=== PATIENT | female | born 1990 | race African-American/Black ===

== ENCOUNTER 2016-10-14 14:33 | Emergency (ER) | payer OTHER ==
[~2016-10-14] VITALS: Ht 167.6 cm; Wt 136.0 kg
[2016-10-14 14:43] VITALS: BP 166/93
[2016-10-14] MEDS ORDERED: birth control (14:46)
== END 2016-10-14 16:25 | disposition home or self-care (01) ==
LOC: ER 16:04
DX: R21 Rash and other nonspecific skin eruption (principal); Z98.890 Other specified postprocedural states
CPT/HCPCS: 99283

== ENCOUNTER 2019-09-28 18:53 | Emergency (ER) | payer OTHER ==
[~2019-09-28] VITALS: Ht 167.6 cm; Wt 140.0 kg
[~2019-09-28 18:53] MED LIST: birth control
[2019-09-28] MEDS ORDERED: ONDANSETRON 4MG ODT PO ONE (20:45)
[2019-09-28 21:40] LABS: HEMATOCRIT. 38.8 % (36.0-48.0); HEMOGLOBIN. 12.8 g/dL (12.0-16.0); MEAN CORPUSCULAR HEMOGLOBIN 26.2 pg (28.0-32.0); MEAN CORPUSCULAR VOLUME 79.2 fL (81.0-99.0); MEAN PLATELET VOLUME 7.9 fl (7.4-10.4); PLATELET 393 x1000/uL (130-400); RED BLOOD CELL COUNT 4.89 mill/uL (4.2-5.4); RED CELL DISTRIBUTION WIDTH 16.9 % (11.6-14.6)
[2019-09-28 21:46] LABS: CHLORIDE 107 mEq/L (98-107)
[2019-09-28 22:23] LABS: HCG SCREEN NEGATIVE
[2019-09-28 22:59] LABS: PLATELET ESTIMATE NORMAL
[2019-09-28 23:28] VITALS: BP 115/69
== END 2019-09-28 23:29 | disposition home or self-care (01) ==
LOC: ER 18:53
DX: R11.10 Vomiting, unspecified (principal); R19.7 Diarrhea, unspecified; R03.0 Elevated blood-pressure reading, without diagnosis of hypertension
CPT/HCPCS: 36415; 80053; 84703; 85025; 99283; Q0162

== ENCOUNTER 2020-07-13 13:50 | Emergency (ER) | payer OTHER ==
[~2020-07-13] VITALS: Ht 167.6 cm; Wt 127.0 kg
[2020-07-13 13:53] VITALS: BP 135/84
[2020-07-13 14:57] LABS: BASOPHILS % 0.4 % (0.0-2.0); EOSINOPHILS % 1.3 % (0.0-5.0); HEMATOCRIT. 39.2 % (36.0-48.0); HEMOGLOBIN. 13.6 g/dL (12.0-16.0); LYMPHOCYTES % 28.5 % (20.0-50.0); MEAN CORPUSCULAR HEMOGLOBIN 29.6 pg (28.0-32.0); MEAN CORPUSCULAR VOLUME 85.3 fL (81.0-99.0); MEAN PLATELET VOLUME 7.7 fl (7.4-10.4); MONOCYTES % 6.1 % (2.0-8.0); NEUTROPHILS % 63.7 % (40.0-76.0); PLATELET 322 x1000/uL (130-400); RED BLOOD CELL COUNT 4.59 mill/uL (4.2-5.4); RED CELL DISTRIBUTION WIDTH 14.6 % (11.6-14.6)
[2020-07-13 15:41] LABS: CLARITY URINE CLOUDY (CLEAR); COLOR URINE YELLOW (YELLOW); KETONES URINE NEGATIVE (NEGATIVE); LEUKOCYTE ESTERASE URINE NEGATIVE (NEGATIVE); NITRITE URINE NEGATIVE (NEGATIVE); OCCULT BLOOD URINE 3+ (NEGATIVE); PH URINE 7.5 (4.5-8.0); PROTEIN URINE NEGATIVE (NEGATIVE); SPECIFIC GRAVITY URINE 1.019 (1.005-1.030); UROBILINOGEN URINE 0.2 E.U./dL (0.2-1.0)
== END 2020-07-13 18:37 | disposition home or self-care (01) ==
LOC: ER 13:50
DX: O20.0 Threatened abortion (principal); R82.71 Bacteriuria; Z3A.01 Less than 8 weeks gestation of pregnancy; Z98.890 Other specified postprocedural states
CPT/HCPCS: 36415; 76801; 81003; 84702; 85025; 86850; 86900; 99284

== ENCOUNTER 2020-09-19 21:21 | Emergency (ER) | payer OTHER ==
[~2020-09-19] VITALS: Ht 167.6 cm; Wt 131.1 kg
[2020-09-19] MEDS ORDERED: SODIUM CHLORIDE 0.9% 1,000 ML IV ONE (21:45)
[2020-09-19 22:25] LABS: BASOPHILS % 0.4 % (0.0-2.0); EOSINOPHILS % 1.6 % (0.0-5.0); HEMATOCRIT. 39.3 % (36.0-48.0); LYMPHOCYTES % 29.5 % (20.0-50.0); MEAN CORPUSCULAR HEMOGLOBIN 29.3 pg (28.0-32.0); MEAN CORPUSCULAR VOLUME 88.5 fL (81.0-99.0); MEAN PLATELET VOLUME 7.7 fl (7.4-10.4); MONOCYTES % 6.1 % (2.0-8.0); NEUTROPHILS % 62.4 % (40.0-76.0); PLATELET 320 x1000/uL (130-400); RED BLOOD CELL COUNT 4.44 mill/uL (4.2-5.4); RED CELL DISTRIBUTION WIDTH 14.6 % (11.6-14.6)
[2020-09-19 22:28] LABS: PROTHROMBIN TIME 10.4 sec (9.6-11.0)
[2020-09-19 22:30] LABS: CHLORIDE 106 mEq/L (98-107)
[2020-09-19 22:54] LABS: B-HCG QUANTITATIVE 12584 mIU/mL (<3)
[2020-09-20 00:12] LABS: CLARITY URINE CLEAR (CLEAR); COLOR URINE YELLOW (YELLOW); KETONES URINE 4+ (NEGATIVE); LEUKOCYTE ESTERASE URINE NEGATIVE (NEGATIVE); NITRITE URINE NEGATIVE (NEGATIVE); OCCULT BLOOD URINE 3+ (NEGATIVE); PROTEIN URINE 1+ (NEGATIVE); SPECIFIC GRAVITY URINE 1.035 (1.005-1.030)
[2020-09-20 00:51] LABS: *AMPHETAMINES SCREEN URINE NEGATIVE (NEGATIVE); *BARBITURATES SCREEN URINE NEGATIVE (NEGATIVE); *BENZODIAZEPINES SCREEN URINE NEGATIVE (NEGATIVE); *COCAINE SCREEN URINE NEGATIVE (NEGATIVE); METHADONE URINE SCREEN NEGATIVE (NEGATIVE)
[2020-09-20 00:52] LABS: CANNABINOID URINE SCREEN NEGATIVE (NEGATIVE); OPIATES URINE SCREEN NEGATIVE (NEGATIVE); PHENCYCLIDINE URINE SCREEN NEGATIVE (NEGATIVE)
[2020-09-20 02:00] VITALS: BP 133/74
== END 2020-09-20 02:12 | disposition home or self-care (01) ==
LOC: ER 21:21
DX: O46.92 Antepartum hemorrhage, unspecified, second trimester (principal); Z3A.14 14 weeks gestation of pregnancy; Z98.890 Other specified postprocedural states
CPT/HCPCS: 36415; 76830; 76856; 80053; 80305; 81003; 81025; 84702; 85025; 85610; 86850; 86900; 86901; 93005; 96360; 96361; 99285; J7030

== ENCOUNTER 2020-10-21 20:55 | Emergency (ER) | payer OTHER ==
[~2020-10-21] VITALS: Ht 167.6 cm; Wt 125.0 kg
[2020-10-21 21:22] VITALS: BP 138/67
[2020-10-21 21:46] LABS: CLARITY URINE CLOUDY (CLEAR); COLOR URINE YELLOW (YELLOW); KETONES URINE TRACE (NEGATIVE); LEUKOCYTE ESTERASE URINE 1+ (NEGATIVE); NITRITE URINE NEGATIVE (NEGATIVE); OCCULT BLOOD URINE NEGATIVE (NEGATIVE); PROTEIN URINE NEGATIVE (NEGATIVE); SPECIFIC GRAVITY URINE 1.028 (1.005-1.030); UROBILINOGEN URINE 0.2 E.U./dL (0.2-1.0)
[2020-10-21] MEDS ORDERED: CEPH500T MT (21:55)
[2020-10-21] MEDS ORDERED: CEPHALEXIN 250MG CAPSULE PO ONE (22:00)
== END 2020-10-21 22:44 | disposition home or self-care (01) ==
LOC: ER 20:55
DX: O23.12 Infections of bladder in pregnancy, second trimester (principal); O26.892 Other specified pregnancy related conditions, second trimester; R03.0 Elevated blood-pressure reading, without diagnosis of hypertension; Z3A.19 19 weeks gestation of pregnancy
CPT/HCPCS: 81003; 99283

== ENCOUNTER 2020-11-17 08:05 | Inpatient (IN) | payer OTHER ==
[~2020-11-17] VITALS: Ht 167.6 cm; Wt 131.1 kg
[~2020-11-17 08:05] MED LIST changes: +CEPH500T MT
[2020-11-17] MEDS ORDERED: TERBUTALINE SULFATE 1MG/ML VIAL SUBCUT SCH (09:15)
[2020-11-17] MEDS ORDERED: TERBUTALINE SULFATE 1MG/ML VIAL ONE (09:23)
[2020-11-17] MEDS: LACTATED RINGERS 1,000 ML IV SCH ×2 (09:46→11:44)
[2020-11-17 10:36] LABS: CLARITY URINE CLOUDY (CLEAR); COLOR URINE DARK YELLOW (YELLOW); KETONES URINE TRACE (NEGATIVE); LEUKOCYTE ESTERASE URINE 2+ (NEGATIVE); NITRITE URINE NEGATIVE (NEGATIVE); OCCULT BLOOD URINE NEGATIVE (NEGATIVE); PROTEIN URINE 1+ (NEGATIVE); SPECIFIC GRAVITY URINE 1.031 (1.005-1.030)
[2020-11-17] MEDS ORDERED: MAGNESIUM 20 G PREMIX (L & D) 500 ML IV SCH (11:00)
[2020-11-17] MEDS ORDERED: MAGNESIUM 4 G PREMIX 100 ML IV NR (11:00)
[2020-11-17 11:11] LABS: *BARBITURATES SCREEN URINE NEGATIVE (NEGATIVE); *BENZODIAZEPINES SCREEN URINE NEGATIVE (NEGATIVE); *COCAINE SCREEN URINE NEGATIVE (NEGATIVE)
[2020-11-17 11:12] LABS: *AMPHETAMINES SCREEN URINE NEGATIVE (NEGATIVE); CANNABINOID URINE SCREEN NEGATIVE (NEGATIVE); METHADONE URINE SCREEN NEGATIVE (NEGATIVE); OPIATES URINE SCREEN NEGATIVE (NEGATIVE); PHENCYCLIDINE URINE SCREEN NEGATIVE (NEGATIVE)
[2020-11-17 12:04] LABS: BASOPHILS % 0.2 % (0.0-2.0); EOSINOPHILS % 0.4 % (0.0-5.0); HEMATOCRIT. 34.3 % (36.0-48.0); HEMOGLOBIN. 11.7 g/dL (12.0-16.0); LYMPHOCYTES % 7.8 % (20.0-50.0); MEAN CORPUSCULAR HEMOGLOBIN 30.6 pg (28.0-32.0); MEAN CORPUSCULAR VOLUME 89.6 fL (81.0-99.0); MEAN PLATELET VOLUME 7.9 fl (7.4-10.4); MONOCYTES % 5.6 % (2.0-8.0); PLATELET 300 x1000/uL (130-400); RED BLOOD CELL COUNT 3.83 mill/uL (4.2-5.4); RED CELL DISTRIBUTION WIDTH 13.4 % (11.6-14.6)
[2020-11-17 12:13] LABS: PARTIAL THROMBOPLASTIN TIME 31.9 sec (23.4-31.0); PROTHROMBIN TIME 10.5 sec (9.6-11.0)
[2020-11-17] MEDS ORDERED: BETAMETHASONE ACET/BETAMET 30 MG/5 ML VIAL IM SCH (12:30)
[2020-11-17] MEDS ORDERED: INDOMETHACIN 25MG CAPSULE PO ONE (12:45)
[2020-11-17 12:48] LABS: HEPATITIS B SURFACE ANTIGEN NEGATIVE
[2020-11-17] MEDS ORDERED: CITRIC ACID/SODIUM CITRATE SOLN 30ML UDC PO NR (13:30)
[2020-11-17] MEDS ORDERED: PENICILLIN G POTASSIUM 5 MMU in DEXT 5% WATER 100 ML IV NR (13:30)
[2020-11-17] MEDS ORDERED: NIFEDIPINE 10MG CAPSULE PO PRN (15:30)
[2020-11-17] MEDS ORDERED: MORPHINE SULFATE/PF 1MG/ML 10ML AMP ONE (16:17)
[2020-11-17] MEDS ORDERED: EPHEDRINE SULFATE 50MG/ML VIAL ONE (16:17)
[2020-11-17] MEDS ORDERED: FENTANYL CITRATE/PF 50MCG/ML 2ML VIAL ONE (16:17)
[2020-11-17] MEDS ORDERED: PROPOFOL 200MG/20ML VIAL IV ONE (16:18)
[2020-11-17] MEDS ORDERED: SUCCINYLCHOLINE CHLORIDE 200MG/10ML IV ONE (16:19)
[2020-11-17] MEDS ORDERED: SODIUM CHLORIDE 0.9% 10ML VIAL ONE (16:20)
[2020-11-17] MEDS ORDERED: CEFAZOLIN SODIUM 1000MG/VIAL ONE (16:37)
[2020-11-17] MEDS ORDERED: OXYTOCIN 10 UNITS/ML 1ML ONE ×2 (16:37→17:02)
[2020-11-17] MEDS ORDERED: METOCLOPRAMIDE HCL 10MG/2ML VIAL ONE (16:42)
[2020-11-17] MEDS ORDERED: ONDANSETRON HCL 4MG/2ML INJ ONE (16:42)
[2020-11-17] MEDS ORDERED: DIPHENHYDRAMINE 50MG/ML VIAL ONE (16:50)
[2020-11-17] MEDS ORDERED: KETOROLAC 60MG/2ML VIAL IM ONE (17:00)
[2020-11-17] MEDS ORDERED: IBUPROFEN 400MG TABLET PO PRN (17:30)
[2020-11-17] MEDS ORDERED: ONDANSETRON HCL 4MG/2ML INJ IV PRN (17:30)
[2020-11-17] MEDS ORDERED: DIPHENHYDRAMINE 25MG CAPSULE PO PRN (17:30)
[2020-11-17] MEDS ORDERED: RHO(D) IMMUNE GLOBULIN 300 MCG/SYR IM PRN (17:30)
[2020-11-17] MEDS ORDERED: BISACODYL 10MG SUPP PR PRN (17:30)
[2020-11-17] MEDS ORDERED: LANOLIN OINT 7GM TUBE TOP PRN (17:30)
[2020-11-17] MEDS ORDERED: HYDROCODONE/ACETAMINOPHEN 5/325MG TABLET PO PRN (17:30)
[2020-11-17] MEDS ORDERED: HEMORRHOIDAL SUPP PR PRN (17:30)
[2020-11-17] MEDS ORDERED: PENICILLIN G POTASSIUM 2.5 MMU in DEXTROSE 5% WATER 50 ML IV SCH (20:30)
[2020-11-17 21:00] VITALS: BP 110/69
[2020-11-17] MEDS ORDERED: DOCUSATE SODIUM 100MG CAPSULE PO SCH (21:00)
[2020-11-17] MEDS: DEXT 5%/LR + PITOCIN 20UNITS/L 1,000 ML IV SCH (21:16)
[2020-11-18] VITALS: BP 111/73
[2020-11-18 04:00] VITALS: BP 100/55
[2020-11-18] MEDS: DEXT 5%/LR + PITOCIN 20UNITS/L 1,000 ML IV SCH (04:14)
[2020-11-18] MEDS: IBUPROFEN 800MG TABLET PO PRN ×3 (04:15→21:32)
[2020-11-18 06:24] LABS: HEMOGLOBIN. 11.1 g/dL (12.0-16.0); MEAN CORPUSCULAR HEMOGLOBIN 30.7 pg (28.0-32.0); MEAN CORPUSCULAR VOLUME 91.1 fL (81.0-99.0); MEAN PLATELET VOLUME 7.8 fl (7.4-10.4); PLATELET 328 x1000/uL (130-400); RED BLOOD CELL COUNT 3.62 mill/uL (4.2-5.4); RED CELL DISTRIBUTION WIDTH 13.2 % (11.6-14.6)
[2020-11-18] MEDS ORDERED: FERROUS SULFATE 325MG TABLET PO SCH (07:30)
[2020-11-18] MEDS: MAGNESIUM/ALUMINUM HYDROXIDE/SIMETHICONE 30ML UDC PO SCH ×2 (07:30→21:33)
[2020-11-18 08:00] VITALS: BP 106/59
[2020-11-18] MEDS ORDERED: BETAMETHASONE ACET/BETAMET 30 MG/5 ML VIAL IM SCH (12:30)
[2020-11-18] MEDS: PRENATAL VIT/FE FUMARATE/FA TABLET PO SCH (13:07)
[2020-11-18 15:47] VITALS: BP 114/71
[2020-11-18 18:25] LABS: PLATELET ESTIMATE NORMAL
[2020-11-18 20:00] VITALS: BP 109/57
[2020-11-19 01:11] LABS: BASOPHILS % 0.2 % (0.0-2.0); EOSINOPHILS % 0.6 % (0.0-5.0); HEMOGLOBIN. 9.5 g/dL (12.0-16.0); LYMPHOCYTES % 14.2 % (20.0-50.0); MEAN CORPUSCULAR HEMOGLOBIN 30.9 pg (28.0-32.0); MEAN CORPUSCULAR VOLUME 90.9 fL (81.0-99.0); MEAN PLATELET VOLUME 7.7 fl (7.4-10.4); MONOCYTES % 6.5 % (2.0-8.0); NEUTROPHILS % 78.5 % (40.0-76.0); PLATELET 289 x1000/uL (130-400); RED BLOOD CELL COUNT 3.08 mill/uL (4.2-5.4); RED CELL DISTRIBUTION WIDTH 13.2 % (11.6-14.6)
[2020-11-19 04:00] VITALS: BP 102/62
[2020-11-19] MEDS: IBUPROFEN 800MG TABLET PO PRN (08:14)
[2020-11-19] MEDS: PRENATAL VIT/FE FUMARATE/FA TABLET PO SCH (09:00)
== END 2020-11-19 08:20 | disposition home or self-care (01) | DRG 786 ==
LOC: 8 EST LDRP 08:05 → OBSVTOIN 08:05 → 8EST 20:53
PROVIDERS: ADMIT Obstetrics & Gynecology; ATTEND Obstetrics & Gynecology
PROC: 10D00Z1 Extraction of Products of Conception, Low, Open Approach (ICD-10-PCS; principal; 2020-11-17)
DX: O42.912 Preterm premature rupture of membranes, unspecified as to length of time between rupture and onset of labor, second trimester (principal); O60.12X0 Preterm labor second trimester with preterm delivery second trimester, not applicable or unspecified; O34.211 Maternal care for low transverse scar from previous cesarean delivery; Z20.822 Contact with and (suspected) exposure to COVID-19; O32.1XX0 Maternal care for breech presentation, not applicable or unspecified; Z37.0 Single live birth; Z3A.23 23 weeks gestation of pregnancy
CPT/HCPCS: 36415; 76805; 80305; 81003; 82731; 85025; 86592; 86644; 86703; 86762; 86850; 86900; 87340; 87426; 88307; 99281; G0378; J0330; J0690; J0702; J1200; J1885; J2274; J2405; J2540; J2590; J2704; J2765; J3010; J3105; J3475; J3490; J7060; J7120

== ENCOUNTER 2021-06-19 21:37 | Emergency (ER) | payer OTHER ==
[~2021-06-19] VITALS: Ht 167.6 cm; Wt 133.0 kg
[~2021-06-19 21:37] MED LIST changes: -birth control
[2021-06-19] MEDS ORDERED: PREN1TAB78 MT (22:13)
[2021-06-19 22:55] LABS: CLARITY URINE CLEAR (CLEAR); COLOR URINE YELLOW (YELLOW); KETONES URINE TRACE (NEGATIVE); LEUKOCYTE ESTERASE URINE 2+ (NEGATIVE); NITRITE URINE NEGATIVE (NEGATIVE); OCCULT BLOOD URINE TRACE (NEGATIVE); PROTEIN URINE TRACE (NEGATIVE); SPECIFIC GRAVITY URINE 1.028 (1.005-1.030); UROBILINOGEN URINE 0.2 E.U./dL (0.2-1.0)
[2021-06-19] MEDS ORDERED: PHEN-815 MT (23:29)
[2021-06-19] MEDS ORDERED: CEPH500T MT (23:29)
[2021-06-19 23:40] VITALS: BP 138/82
== END 2021-06-19 23:45 | disposition home or self-care (01) ==
LOC: ER 21:37
DX: O23.11 Infections of bladder in pregnancy, first trimester (principal); B95.1 Streptococcus, group B, as the cause of diseases classified elsewhere; Z3A.01 Less than 8 weeks gestation of pregnancy
CPT/HCPCS: 81003; 81025; 87077; 99283

== ENCOUNTER 2021-07-15 17:24 | Emergency (ER) | payer OTHER ==
[~2021-07-15] VITALS: Ht 167.6 cm; Wt 137.0 kg
[~2021-07-15 17:24] MED LIST changes: +PHEN-815 MT; +PREN1TAB78 MT
[2021-07-15 17:30] VITALS: BP 186/104
[2021-07-16] MEDS ORDERED: ONDANSETRON HCL 4MG/2ML INJ IV ONE (02:45)
[2021-07-16] MEDS ORDERED: SODIUM CHLORIDE 0.9% 1,000 ML IV ONE (02:45)
[2021-07-16 03:28] LABS: CHLORIDE 107 mEq/L (98-107)
[2021-07-16 03:42] LABS: BASOPHILS % 0.4 % (0.0-2.0); EOSINOPHILS % 1.1 % (0.0-5.0); HEMATOCRIT. 40.2 % (36.0-48.0); LYMPHOCYTES % 16.6 % (20.0-50.0); MEAN CORPUSCULAR HEMOGLOBIN 30.6 pg (28.0-32.0); MEAN CORPUSCULAR VOLUME 87.9 fL (81.0-99.0); MEAN PLATELET VOLUME 7.7 fl (7.4-10.4); MONOCYTES % 7.5 % (2.0-8.0); NEUTROPHILS % 74.4 % (40.0-76.0); PLATELET 343 x1000/uL (130-400); RED BLOOD CELL COUNT 4.57 mill/uL (4.2-5.4); RED CELL DISTRIBUTION WIDTH 14.4 % (11.6-14.6)
[2021-07-16 06:04] LABS: CLARITY URINE CLEAR (CLEAR); COLOR URINE YELLOW (YELLOW); KETONES URINE NEGATIVE (NEGATIVE); LEUKOCYTE ESTERASE URINE 2+ (NEGATIVE); NITRITE URINE NEGATIVE (NEGATIVE); OCCULT BLOOD URINE NEGATIVE (NEGATIVE); PROTEIN URINE NEGATIVE (NEGATIVE); SPECIFIC GRAVITY URINE 1.023 (1.005-1.030)
[2021-07-16 06:06] LABS: B-HCG QUANTITATIVE 71675 mIU/mL (<3)
[2021-07-16] MEDS ORDERED: CEPH500C2 MT (07:18)
[2021-07-16] MEDS ORDERED: METR-167 MT (07:19)
== END 2021-07-16 07:28 | disposition home or self-care (01) ==
LOC: ER 17:24
DX: O23.31 Infections of other parts of urinary tract in pregnancy, first trimester (principal); N39.0 Urinary tract infection, site not specified; Z98.890 Other specified postprocedural states; Z3A.08 8 weeks gestation of pregnancy
CPT/HCPCS: 36415; 76801; 76817; 80053; 81003; 83690; 84702; 85025; 86850; 86900; 86901; 93005; 96361; 96374; 99285; J2405; J7030

== ENCOUNTER 2023-09-21 08:40 | Emergency (ER) | payer OTHER ==
[~2023-09-21] VITALS: Ht 167.6 cm; Wt 136.8 kg
[~2023-09-21 08:40] MED LIST changes: +CEPH500C2 MT; +METR-167 MT
[2023-09-21 08:59] VITALS: O2SAT 95
[2023-09-21] MEDS ORDERED: IBUP-2899 PO (10:53)
[2023-09-21 11:19] LABS: BASOPHILS % 0.3 % (0.0-2.0); EOSINOPHILS % 1.4 % (0.0-5.0); HEMATOCRIT. 41.2 % (36.0-48.0); HEMOGLOBIN. 14.3 g/dL (12.0-16.0); LYMPHOCYTES % 12.4 % (20.0-50.0); MEAN CORPUSCULAR HEMOGLOBIN 31.2 pg (28.0-32.0); MEAN CORPUSCULAR HGB CONC 34.7 g/dL (31.0-37.0); MEAN CORPUSCULAR VOLUME 89.9 fL (81.0-99.0); MEAN PLATELET VOLUME 7.7 fl (7.4-10.4); MONOCYTES % 6.1 % (2.0-8.0); NEUTROPHILS % 79.8 % (40.0-76.0); PLATELET 293 x1000/uL (130-400); RED BLOOD CELL COUNT 4.58 mill/uL (4.2-5.4); RED CELL DISTRIBUTION WIDTH 13.1 % (11.6-14.6); WHITE BLOOD COUNT 9.1 x1000/uL (4.5-11.0)
[2023-09-21 11:20] LABS: ALANINE AMINOTRANSFERASE 88 IU/L (10-49); ALBUMIN 4.6 g/dL (3.2-4.8); ASPARTATE AMINOTRANSFERASE 173 IU/L (<34); BILIRUBIN TOTAL 0.4 mg/dL (0.1-1.0); CALCIUM 9.1 mg/dL (8.7-10.4); CARBON DIOXIDE 27 mEq/L (21-32); CHLORIDE 104 mEq/L (98-107); CREATININE 0.9 mg/dL (0.6-1.0); GLUCOSE 111 mg/dL (70-105); POTASSIUM 4.1 mEq/L (3.5-5.1); PROTEIN TOTAL 7.9 g/dL (6.0-8.3); SODIUM 137 mEq/L (136-145); UREA NITROGEN BLOOD 7 mg/dL (9-23)
[2023-09-21 13:03] VITALS: BP 126/81; PULSE 66; RESP 18; TEMP 97.7
== END 2023-09-21 13:20 | disposition home or self-care (01) ==
LOC: ER 08:40 → EDBD 08:40 → ER 13:20
DX: K80.20 Calculus of gallbladder without cholecystitis without obstruction (principal); R10.11 Right upper quadrant pain
CPT/HCPCS: 36415; 76705; 80053; 85025; 93005; 99284

== ENCOUNTER 2024-04-08 04:20 | Emergency (ER) | payer OTHER ==
[~2024-04-08] VITALS: Ht 167.6 cm; Wt 125.0 kg
[~2024-04-08 04:20] MED LIST changes: +IBUP-2899 PO
[2024-04-08 04:25] VITALS: O2SAT 98
[2024-04-08] MEDS ORDERED: AMOX1TAB16 PO (05:47)
[2024-04-08] MEDS ORDERED: TOPUD PO (05:47)
[2024-04-08] MEDS: PENICILLIN G BENZATHINE 1,200,000 UNITS/2ML SYR IM ONE (06:15)
[2024-04-08 06:30] VITALS: BP 119/83; PULSE 74; RESP 17; TEMP 36.94740; O2SAT 99
== END 2024-04-08 08:09 | disposition home or self-care (01) ==
LOC: ER 04:26
DX: J02.0 Streptococcal pharyngitis (principal); Z79.899 Other long term (current) drug therapy
CPT/HCPCS: 99283; 87430; 87070; 96372; J0561